=== PATIENT | female | born 1995 | race Caucasian/White ===

== ENCOUNTER → 2017-10-25 | Outpatient (CLI) | payer OTHER ==
[~2017-10-25] MED LIST: ACE3 PO; ALBU8.5H12 IH; CEPH500T7 PO; IBU800 PO; LOR5/325 PO; MULT-885 PO
--- NOTE | 2017-10-25 13:49 | RADIOLOGY IMAGING REPORT ---
FACILITY: [facility] [place] PATIENT NAME: Mireya Palma : 1995 MR: [id number] V: [id number] EXAM DATE: ORDERING PHYSICIAN: TASIA ORLANDO TECHNOLOGIST: Location: [facility] Patient: Mireya Palma : 1995 Visit/Account:[id number] Date of Sevice: 10/25/2017 INDICATION: . Left hip pain. DATE: 10/25/2017 1:43 PM. TECHNIQUE: HIP LEFT COMPARISON: Abdomen pelvis CT August 08, 2014 FINDINGS: The pelvic ring appears intact. No evidence of fracture or dislocation. No degenerative fin dings. Possible bone island in the left iliac wing. IMPRESSION: No acute osseous abnormality and no significant degenerative change. Report Dictated By: Lori Koenig MD at 10/25/2017 1:43 PM Report E-Signed By: Lori Koenig MD at 10/25/2017 1:45 PM WSN:[id number]
== END ==
LOC: RAD 12:51
PROVIDERS: ATTEND Physician Assistant
DX: M25.552 Pain in left hip (principal)

== ENCOUNTER 2018-11-04 21:42 | Emergency (ER) | payer OTHER ==
[2018-11-04 21:48] VITALS: BP 125/77
[2018-11-04] MEDS ORDERED: LORA-802 PO (21:52)
[2018-11-04] MEDS ORDERED: PREN-127 PO (21:52)
[2018-11-04] MEDS ORDERED: ONDA4TAB9 PO (21:52)
--- NOTE | 2018-11-04 22:03 | ER Report ---
History and Physical Time Seen By MD: 21:49 Hx. of Stated Complaint: patient was stuck in her finger by a dirty needle at work. patient did wash hand afterward. this took place around 1 1/2hours ago. patient concerned because she is also 14wks . HPI/ROS CHIEF COMPLAINT: Needlestick injury HISTORY OF PRESENT ILLNESS: This is a 22-year-old female. She is a nurse at [employer]. She was stuck by a needle used on a resident there for subq injection of insulin. Recapped needle using one hand technique, needle went through side of cap. Stuck in left distal index finger. Patient is 14 weeks at this time. SEATING CAPTAIN is Dr. Villarreal. No prior exposures in the past. No other health problems. Has been immunized against Hep B. Allergies: Coded Allergies: morphine (Verified Adverse Reaction, Mild, ABD. UPSET WITH VOMITING, 10/03/13) Home Meds Active Scripts Lopinavir/Ritonavir (KALETRA 200-50 MG TABLET) 1 Each Tab, 2 TAB PO BID for 28 Days, #112 TAB 0 Refills Prov:KENISHA MORALES MD 11/04/18 Lamivudine (LAMIVUDINE) 150 Mg Tablet, 150 MG PO BID, #56 TAB 0 Refills Prov:KENISHA MORALES MD 11/04/18 Tenofovir Disoproxil Fumarate (VIREAD) 300 Mg Tablet, 300 MG PO QDAY, #28 TAB 0 Refills Prov:KENISHA MORALES MD 11/04/18 Reported Medications Ondansetron 4 Mg Odt (ONDANSETRON 4 MG ODT) 4 Mg Tab.rapdis, 4 MG PO ONCE PRN for NAUSEA, TAB 11/04/18 Loratadine (CLARITIN) 10 Mg Tablet, 10 MG PO QDAY 11/04/18 Vits W-Ca,Fe,Fa(<1MG) ( VITAMINS) 1 Each Tablet, 1 EACH PO DAILY, TAB 11/04/18 Discontinued Scripts Albuterol Sul Hfa 90 Mcg 8 Gm (VENTOLIN HFA 90 MCG 8 GM) 8.5 Gm Hfa.aer.ad, 2 PUFF IH Q4-6H, #8.5 MG TWO PUFFS EVERY FOUR TO SIX HOURS NEEDED Prov:EARLENE NELSON DO 10/03/13 Reviewed Nurses Notes: Yes Hx Smoking: Yes Smoking Status: Current: Every Day Smoker Exposure to Second Hand Smoke?: Yes Hx Substance Use Disorder: No Hx Alcohol Use: No Constitutional Vital Sign - Last 24 Hours 11/04/18 21:48 Temp 98.8 Pulse 91 B/P (MAP) 125/77 Pulse Ox 95 O2 Delivery Room Air Physical Exam General: Alert, no distress. Skin: Has small puncture distal index left. No bleeding at this time. Medical Decision Making Data Points Laboratory Serology Test 11/04/18 22:43 HIV (1&2) Antibody Negative (NEGATIVE) ED Course/Re-evaluation ED Course Recommended patient talk to her work about getting the source patient tested for HIV, Hep B, and Hep C. We discussed PEP for HIV. Current recommendations from CDC and WHO with 3 drug 28 day regimen. Testing for HIV, Hep B, Hep C done. Prescriptions given. See below. Decision to Disposition Date: Nov 04, 2018 Decision to Disposition Time: 22:21 Depart Departure Latest Vital Signs Vital Signs Date Time Temp Pulse Resp B/P (MAP) Pulse Ox O2 Delivery O2 Flow Rate FiO2 11/04/18 21:48 98.8 91 125/77 95 Room Air Impression: Primary Impression: Needle stick injury of finger Condition: Improved Disposition: HOME OR SELF-CARE New Scripts Lopinavir/Ritonavir (KALETRA 200-50 MG TABLET) 1 Each Tab 2 TAB PO BID for 28 Days, #112 TAB 0 Refills Prov: KENISHA MORALES MD 11/04/18 Lamivudine (LAMIVUDINE) 150 Mg Tablet 150 MG PO BID, #56 TAB 0 Refills Prov: KENISHA MORALES MD 11/04/18 Tenofovir Disoproxil Fumarate (VIREAD) 300 Mg Tablet 300 MG PO QDAY, #28 TAB 0 Refills Prov: KENISHA MORALES MD 11/04/18 Patient Instructions: Body Substance Exposure (ED) Additional Instructions: We recommend having lab testing done for the source patient if possible. This will help determine whether post-exposure prophylactic medicines for HIV are needed. If unknown, then you will need to determine whether you would want to take a 28 day course of the anti-retroviral medicines to help prevent transmission of HIV. Risks of the medicines are unknown for , but the current recommendation is that if needed, the benefits outweigh the risks. You have 72 hours from time of exposure to start these medicines. Availability of medicine in [place] areas can be a problem as well, so talking to your pharmacy early is best. Follow-up with Dr. Villarreal in the office next week as well. Dosing: Tenofovir 300mg once a day for 28 days. Lamivudine 150mg twice a day for 28 days. Ritonavir boosted lpinavir 200/50 tablets, take 2 tablets twice a day for 28 days. Follow-up with your employer for further repeated testing for HIV, and hepatitis. Problem Qualifiers Primary Impression: Needle stick injury of finger Encounter type: initial encounter Qualified Codes: S61.239A - Puncture wound without foreign body of unspecified finger without damage to nail, initial encounter; W27.3XXA - Contact with needle (sewing), initial encounter KENISHA MORALES MD Nov 04, 2018 22:03
[2018-11-04] MEDS ORDERED: TEN300PT PO (22:31)
[2018-11-04] MEDS ORDERED: [UNRECOGNIZED DRUG - CODE] PO (22:31)
[2018-11-04] MEDS ORDERED: [UNRECOGNIZED DRUG - CODE] PO (22:31)
== END 2018-11-04 22:58 | disposition home or self-care (01) ==
LOC: ER 22:05
DX: O26.892 Other specified pregnancy related conditions, second trimester (principal); S61.239A Puncture wound without foreign body of unspecified finger without damage to nail, initial encounter; W27.3XXA Contact with needle (sewing), initial encounter; Y99.0 Civilian activity done for income or pay; Z3A.14 14 weeks gestation of pregnancy
CPT/HCPCS: 36415; 86703; 86704; 86706; 86803; 87340; 99282